=== PATIENT | male | born 1970 | race Caucasian/White ===

== ENCOUNTER 2017-03-02 10:41 | Inpatient (IN) | payer BC ==
[~2017-03-02] VITALS: Ht 182.9 cm; Wt 93.5 kg
[2017-03-02 11:09] LABS: BASOPHIL % 0.4 % (0-2); PLATELET COUNT 152 x10^3mcL (130-400)
[2017-03-02 11:10] LABS: RED CELL DISTRIBUTION WIDTH 16.8 % (11.5-14.5)
[2017-03-02 11:16] LABS: CALCIUM 7.9 mg/dL (8.5-10.1); CARBON DIOXIDE 21.4 mmol/L (21-32); CHLORIDE SERUM 101 mmol/L (98-107); GFR1 > 60 mL/min; GLUCOSE SERUM 91 mg/dL (74-106); POTASSIUM SERUM 3.5 mmol/L (3.5-5.1); SODIUM SERUM 140 mmol/L (136-145)
[2017-03-02 11:22] LABS: ALBUMIN 3.9 g/dL (3.4-5.0); ALKALINE PHOSPHATASE 121 U/L (46-116); ALT/SGPT 156 U/L (16-63); AST/SGOT 182 U/L (15-37); BILIRUBIN TOTAL 0.63 mg/dL (0.20-1.00); TOTAL PROTEIN, SERUM 7.5 g/dL (6.4-8.2)
[2017-03-02 14:06] LABS: MAGNESIUM 1.9 mg/dL (1.8-2.4)
[2017-03-02 14:07] LABS: CHOLESTEROL/HDL RATIO 2.2
[2017-03-02 14:12] LABS: T3 TOTAL 0.56 ng/mL
[2017-03-02 14:17] LABS: FREE T4 0.68 ng/dL (0.76-1.46); FREE THYROXINE INDEX 1.8 ug/dL (1.4-4.5); T4(THYROXINE) 4.9 ug/dL (4.7-13.3)
[2017-03-02 14:40] VITALS: BP 113/77
[2017-03-02 14:45] VITALS: BP 113/77
[2017-03-02 15:26] VITALS: BP 113/77
[2017-03-02 18:00] VITALS: BP 116/80
[2017-03-02 23:27] VITALS: BP 103/61
[2017-03-03 05:29] VITALS: BP 126/72
[2017-03-03 06:59] LABS: BASOPHIL % 0.6 % (0-2)
[2017-03-03 07:05] LABS: PLATELET COUNT 113 x10^3mcL (130-400); RED CELL DISTRIBUTION WIDTH 16.5 % (11.5-14.5)
[2017-03-03 08:33] LABS: UA SPECIFIC GRAVITY >=1.030 (1.005-1.035); microscopic required? YES; urine erythrocyte TRACE (NEGATIVE)
[2017-03-03 10:02] LABS: ALBUMIN 3.6 g/dL (3.4-5.0); ALKALINE PHOSPHATASE 118 U/L (46-116); ALT/SGPT 130 U/L (16-63); AST/SGOT 141 U/L (15-37); BILIRUBIN TOTAL 1.05 mg/dL (0.20-1.00); CALCIUM 8.1 mg/dL (8.5-10.1); CARBON DIOXIDE 24.2 mmol/L (21-32); CHLORIDE SERUM 103 mmol/L (98-107); CREATININE SERUM 0.8 mg/dL (0.7-1.3); GFR1 > 60 mL/min; GLUCOSE SERUM 91 mg/dL (74-106); POTASSIUM SERUM 3.7 mmol/L (3.5-5.1); SODIUM SERUM 140 mmol/L (136-145); TOTAL PROTEIN, SERUM 6.9 g/dL (6.4-8.2)
[2017-03-03 10:11] LABS: AMPHETAMINE QUAL UR NONE DETECTED (NEG <=1000)
[2017-03-03 10:15] VITALS: BP 154/93
[2017-03-03 14:02] VITALS: BP 150/93
[2017-03-03 18:11] VITALS: BP 151/99
[2017-03-03 19:40] VITALS: BP 149/96
[2017-03-03 21:30] VITALS: BP 134/85
[2017-03-04 05:35] VITALS: BP 134/83
[2017-03-04 06:35] LABS: BASOPHIL % 0.4 % (0-2)
[2017-03-04 06:41] LABS: PLATELET COUNT 114 x10^3mcL (130-400); RED CELL DISTRIBUTION WIDTH 16.5 % (11.5-14.5)
[2017-03-04 06:56] LABS: ALKALINE PHOSPHATASE 103 U/L (46-116); ALT/SGPT 107 U/L (16-63); AST/SGOT 127 U/L (15-37); BILIRUBIN TOTAL 1.16 mg/dL (0.20-1.00); CALCIUM 8.3 mg/dL (8.5-10.1); CARBON DIOXIDE 27.4 mmol/L (21-32); CHLORIDE SERUM 105 mmol/L (98-107); CREATININE SERUM 0.8 mg/dL (0.7-1.3); GFR1 > 60 mL/min; GLUCOSE SERUM 94 mg/dL (74-106); POTASSIUM SERUM 3.5 mmol/L (3.5-5.1); SODIUM SERUM 140 mmol/L (136-145)
[2017-03-04 06:57] LABS: ALBUMIN 3.2 g/dL (3.4-5.0); TOTAL PROTEIN, SERUM 6.1 g/dL (6.4-8.2)
[2017-03-04 09:22] VITALS: BP 132/87
[2017-03-04] MEDS ORDERED: LORAZEPAM1 MG PO (10:43)
[2017-03-04] MEDS ORDERED: NATURE'S BLEND F1 MG PO (10:45)
[2017-03-04] MEDS ORDERED: THIAMINE HCL100 MG PO (10:46)
[2017-03-04 10:55] VITALS: BP 132/87
[2017-03-04] MEDS ORDERED: FIORICET1 CAP PO (11:04)
[2017-03-04] MEDS ORDERED: LEXAPRO10 MG PO (11:25)
== END 2017-03-04 12:20 | disposition home or self-care (01) | DRG 896 ==
LOC: ED 10:41 → DU 12:37
PROVIDERS: Emergency Medicine; ADMIT Family Medicine
DX: F10.129 Alcohol abuse with intoxication, unspecified (principal); G92 Toxic encephalopathy; N17.0 Acute kidney failure with tubular necrosis; I42.0 Dilated cardiomyopathy; Z68.42 Body mass index [BMI] 45.0-49.9, adult; R73.03 Prediabetes; E78.5 Hyperlipidemia, unspecified; E03.9 Hypothyroidism, unspecified; K70.30 Alcoholic cirrhosis of liver without ascites; F32.9 Major depressive disorder, single episode, unspecified
CPT/HCPCS: 80307; 82962; 83880; 84439; 90732; G0480; J2060; J2405; J3411; J3420; J3475; J3490; J7030; Q0092